=== PATIENT | male | born 1985 | race Caucasian/White ===

== ENCOUNTER 2022-03-01 16:48 | Emergency (ER) | payer BC ==
[2022-03-01] MEDS: Lactated Ringers 1,000 ML IV SCH ×2 (16:50→18:47)
[2022-03-01] MEDS ORDERED: Sodium Chloride 0.9% 10 ML Syringe FLUSH PRN (16:56)
[2022-03-01] MEDS ORDERED: Ondansetron 4 MG/2 ML SDV IVPUSH ONE (16:58)
[2022-03-01 17:41] LABS: CHLORIDE,CL 103 mmol/L (98-107); SODIUM,NA 140 mmol/L (136-145)
[2022-03-01 17:43] LABS: ANION GAP 20.1 meq/L (7-15); ESTIMATED GFR 90 mL/min (>=60)
[2022-03-01 17:51] LABS: CORONAVIRUS COVID-19 NAA NEGATIVE (NEGATIVE); RESPIRATORY SYNCYTIAL VIR NAA NEGATIVE (NEGATIVE)
== END 2022-03-01 20:38 | disposition home or self-care (01) ==
LOC: LL.ED 16:48
DX: T67.5XXA Heat exhaustion, unspecified, initial encounter (principal); E86.0 Dehydration; Z20.822 Contact with and (suspected) exposure to COVID-19
CPT/HCPCS: 0241U; 36415; 71045; 80053; 82550; 83605; 83735; 83880; 84100; 84484; 85025; 86140; 87040; 96361; 96374; 99285; J2405; J7120; 93010; 99284